=== PATIENT | female | born 1985 | race Caucasian/White ===

== ENCOUNTER 2017-10-10 12:06 | Emergency (ER) | payer SELFPAY ==
[2017-10-10 12:43] VITALS: BP 129/87
--- NOTE | 2017-10-10 13:20 | UC ---
Throat Pain/Nasal Maximilian HPI - HPI Summary HPI Summary: Patient to urgent care today with chief complaint of 2 weeks of nasal and sinus congestion, cough congested feeling in chest. Patient notices fatigue but no fevers no recent travel out of the country no illness exposures is here visiting from [place]. - History of Current Complaint Chief Complaint: UCRespiratory Stated Complaint: UPPER RESP,COUGH,MAXIMILIAN Time Seen by Provider: 10/10/17 13:13 Hx Obtained From: Patient Hx Last Menstrual Period: 09/24/17 ?: No Onset/Duration: Gradual Onset, Lasting Weeks - 2, Other - Thus far patient has only tried essential oils for care and management of symptoms Pain Intensity: 0 Cough: Productive - Allergies/Home Medications Allergies/Adverse Reactions: Allergies Allergy/AdvReac Type Severity Reaction Status Date / Time No Known Allergies Allergy Verified 10/10/17 12:33 Home Medications: Home Medications Digestive 8/L.acidoph/Pectin [Eql Digestive Enzymes Tablet] 1 each PO DAILY 08/23 [History Confirmed 10/10/17] Multivitamin [Multivitamins] 1 cap PO DAILY 10/10/17 [History Confirmed 10/10/17 ] PMH/Surg Hx/FS Hx/Imm Hx Previously Healthy: Yes - Surgical History Surgical History: None - Family History Known Family History: Positive: None - Social History Occupation: Employed Full-time Lives: With Family Alcohol Use: Occasionally Substance Use Type: None Smoking Status (MU): Never Smoked Tobacco Review of Systems Constitutional: Fatigue Skin: Negative Eyes: Negative ENT: Ear Ache, Nasal Discharge, Sinus Congestion Respiratory: Cough Cardiovascular: Negative Gastrointestinal: Negative Genitourinary: Negative Motor: Negative Neurovascular: Negative Musculoskeletal: Negative Neurological: Negative Psychological: Negative Is Patient Immunocompromised?: No All Other Systems Reviewed And Are Negative: Yes Physical Exam Triage Information Reviewed: Yes Appearance: Well-Appearing, No Pain Distress, Well-Nourished Vital Signs: Initial Vital Signs Temp 99.3 F 10/10/17 12:35 Pulse 96 10/10/17 12:35 Resp 16 10/10/17 12:35 BP 129/87 10/10/17 12:35 Pulse Ox 100 10/10/17 12:35 Vital Signs Reviewed: Yes Eye Exam: Normal Eyes: Positive: Conjunctiva Clear ENT Exam: Normal ENT: Positive: Normal ENT inspection, Hearing grossly normal, Pharynx normal, Nasal congestion, TMs normal, Uvula midline. Negative: Trismus, Muffled voice, Hoarse voice, Sinus tenderness Dental Exam: Normal Neck exam: Normal Neck: Positive: Supple, Nontender Respiratory Exam: Normal Respiratory: Positive: Chest non-tender, Lungs clear, Normal breath sounds, No respiratory distress, No accessory muscle use Cardiovascular Exam: Normal Cardiovascular: Positive: RRR, No Murmur, Pulses Normal, Brisk Capillary Refill Musculoskeletal Exam: Normal Musculoskeletal: Positive: Strength Intact, ROM Intact, No Edema Neurological Exam: Normal Neurological: Positive: Alert, Muscle Tone Normal Psychological Exam: Normal Skin Exam: Normal Throat Pain/Nasal Course/Dx - Course Assessment/Plan: Patient will first try Mucinex and antihistamine to resolve cough and congestion. If that is work patient may try azithromycin as this is been going on for over 2 weeks. Patient will follow up with primary care doctor return as needed - Differential Dx/Diagnosis Provider Diagnoses: Acute Bronchitis, Allergic Rhinnosinusitis Discharge - Sign-Out/Discharge Documenting (check all that apply): Discharge/Admit/Transfer - Discharge Plan Condition: Stable Disposition: HOME Prescriptions: Azithromycin TAB* [Zithromax TAB (Z-LARA) 250 mg #6 tabs] 2 tab PO .TODAY, THEN 1 DAILY #1 lara guaiFENesin/CODIEN 100MG-10MG* [Robitussin AC 100Mg-10Mg*] 5 - 10 ml PO Q4H PRN #90 ml MDD 40 ml PRN Reason: cough Patient Education Materials: Antitussives (By mouth), Cetirizine (By mouth), Acute Bronchitis (ED) Referrals: No Primary Care Phys,NOPCP [Primary Care Provider] - Additional Instructions: Follow with primary care provider or return as needed - Billing Disposition and Condition Condition: STABLE Disposition: Home
== END 2017-10-10 13:35 | disposition home or self-care (01) ==
LOC: UCCORT 12:06
DX: J20.9 Acute bronchitis, unspecified (principal); J30.9 Allergic rhinitis, unspecified
CPT/HCPCS: 99202; G0463